=== PATIENT | male | born 1960 | race Caucasian/White ===

== ENCOUNTER → 2019-02-02 11:35 | Outpatient (CLI) | payer MEDICARE ==
[~2019-02-02 11:35] MED LIST: ATIVAN1 MG PO; COZAAR50 MG PO; HYDROCODON-ACE1 EA10 PO; LIPITOR20 MG PO; MOBIC7.5 MG PO; PROTONIX40 MG PO; REMERON30 MG PO; ZANTAC300 MG PO; ZOFRAN8 MG PO
[2019-02-02 11:38] LABS: HEMATOCRIT 28.9 % (42.0-54.0); HEMOGLOBIN 10.3 g/dL (13.5-17.5); MCH 32.2 pg (26.0-34.0); MCHC 35.6 g/dL (31.0-37.0); MCV 90.3 fL (80.0-100.0); MEAN PLATELET VOLUME 9.5 fL (7.4-10.4); PLATELET COUNT 146 10x3/uL (130-400); RDW 12.7 % (11.5-14.5)
[2019-02-02 11:42] LABS: WBC 1.4 10x3/uL (4.8-10.8)
[2019-02-02 12:17] LABS: BASOPHILS 1 % (0-2); EOSINOPHILS 1 % (0-7); LYMPHOCYTES 23 % (15-50); MONOCYTES 8 % (2-11); NEUTROPHILS 66 % (40-80); PLATELET ESTIMATE NORMAL
[2019-02-09 14:32] VITALS: BMI 24.5
== END | disposition home or self-care (01) ==
LOC: D.LABREF 11:35
PROVIDERS: ATTEND Legal Medicine
DX: C09.0 Malignant neoplasm of tonsillar fossa (principal)

== ENCOUNTER 2019-02-05 14:13 | Inpatient (IN) | payer MEDICARE ==
[~2019-02-05] VITALS: Ht 175.3 cm; Wt 75.3 kg
[2019-02-05] MEDS ORDERED: MOBIC7.5 MG PO (14:23)
[2019-02-05] MEDS ORDERED: ZANTAC300 MG PO (14:23)
[2019-02-05] MEDS ORDERED: PROTONIX40 MG PO (14:24)
[2019-02-05] MEDS ORDERED: REMERON30 MG PO (14:24)
[2019-02-05] MEDS ORDERED: LIPITOR20 MG PO (14:24)
[2019-02-05] MEDS ORDERED: HYDROCODON-ACE1 EA10 PO (14:25)
[2019-02-05] MEDS ORDERED: ZOFRAN8 MG PO (14:26)
[2019-02-05] MEDS ORDERED: ATIVAN1 MG PO (14:26)
[2019-02-05 14:57] LABS: BASOPHILS 0.8 % (0-2); EOSINOPHILS 1.6 % (0-7); HEMOGLOBIN 10.3 g/dL (13.5-17.5); IMMATURE GRANULOCYTES 0.8 % (0-5); LYMPHOCYTES 20.3 % (15-50); MCH 31.7 pg (26.0-34.0); MCHC 35.5 g/dL (31.0-37.0); MCV 89.2 fL (80.0-100.0); MEAN PLATELET VOLUME 9.2 fL (7.4-10.4); MONOCYTES 7.3 % (2-11); NEUTROPHILS 69.2 % (40-80); RBC 3.25 10x6/uL (4.20-6.10)
[2019-02-05 14:58] LABS: PLATELET COUNT 224 10x3/uL (130-400); WBC 1.2 10x3/uL (4.8-10.8)
[2019-02-05 15:11] LABS: ALBUMIN 2.7 g/dL (3.4-5.0); ANION GAP 17.6 mmol/L (8-16); BILIRUBIN - TOTAL 0.73 mg/dL (0.2-1.3); CALCIUM 9.1 mg/dL (8.5-10.1); CARBON DIOXIDE 25.5 mmol/L (21.0-32.0); CREATININE - SERUM 1.1 mg/dL (0.6-1.3); POTASSIUM - SERUM 3.1 mmol/L (3.5-5.1); PROTEIN - SERUM 7.4 g/dL (6.4-8.2)
[2019-02-05 16:40] VITALS: BP 166/90
[2019-02-05 18:06] VITALS: BMI 24.5
[2019-02-05 19:31] VITALS: BP 171/86
[2019-02-06] VITALS (7 sets, daily range): BP systolic 148–169; BP diastolic 82–103
[2019-02-06 02:07] LABS: APPEARANCE CLEAR (CLEAR); BILIRUBIN NEGATIVE (NEGATIVE); COLOR YELLOW (YELLOW); GLUCOSE NEGATIVE (NEGATIVE); KETONE LARGE mg/dL (NEGATIVE); NITRITE NEGATIVE (NEGATIVE); PROTEIN NEGATIVE (NEGATIVE); SPECIFIC GRAVITY 1.025 (1.005-1.020); UROBILINOGEN NORMAL (NORMAL)
[2019-02-06 07:02] LABS: HEMATOCRIT 27.1 % (42.0-54.0); HEMOGLOBIN 9.7 g/dL (13.5-17.5); MCH 31.8 pg (26.0-34.0); MCHC 35.8 g/dL (31.0-37.0); MCV 88.9 fL (80.0-100.0); MEAN PLATELET VOLUME 9.4 fL (7.4-10.4); PLATELET COUNT 208 10x3/uL (130-400); RBC 3.05 10x6/uL (4.20-6.10); RDW 13.2 % (11.5-14.5)
[2019-02-06 07:07] LABS: WBC 0.9 10x3/uL (4.8-10.8)
[2019-02-06 07:45] LABS: CALCIUM 8.6 mg/dL (8.5-10.1); CHLORIDE - SERUM 102 mmol/L (98-107); GLUCOSE 109 mg/dL (74-106); MAGNESIUM - SERUM 1.6 mg/dL (1.8-2.4); PHOSPHOROUS 2.7 mg/dL (2.5-4.9); POTASSIUM - SERUM 3.1 mmol/L (3.5-5.1); SODIUM 142 mmol/L (136-145)
[2019-02-06 07:53] LABS: CALC OSMOLALITY 282 mosm/kg (275-300); CREATININE - SERUM 0.7 mg/dL (0.6-1.3); UREA NITROGEN 11 mg/dL (7-18); eGFR NON AFRICAN AMERICAN > 90 mL/min (90-120)
[2019-02-06 08:30] LABS: EOSINOPHILS 8 % (0-7); LYMPHOCYTES 20 % (15-50); MONOCYTES 4 % (2-11); NEUTROPHILS 50 % (40-80); TOXIC GRANULATION 4+
[2019-02-06 08:31] LABS: PLATELET ESTIMATE DECREASED; SMUDGE CELLS 1+
[2019-02-06 08:32] LABS: ANISOCYTOSIS 1+; SPHEROCYTES OCC
[2019-02-07 04:59] VITALS: BP 158/86
[2019-02-07 06:35] LABS: CALC OSMOLALITY 279 mosm/kg (275-300); CALCIUM 8.3 mg/dL (8.5-10.1); CARBON DIOXIDE 31.5 mmol/L (21.0-32.0); CHLORIDE - SERUM 102 mmol/L (98-107); CREATININE - SERUM 0.8 mg/dL (0.6-1.3); GLUCOSE 128 mg/dL (74-106); SODIUM 140 mmol/L (136-145); UREA NITROGEN 9 mg/dL (7-18); eGFR NON AFRICAN AMERICAN > 90 mL/min (90-120)
[2019-02-07 06:36] LABS: HEMOGLOBIN 8.8 g/dL (13.5-17.5); MCH 31.2 pg (26.0-34.0); MCHC 35.2 g/dL (31.0-37.0); MCV 88.7 fL (80.0-100.0); MEAN PLATELET VOLUME 9.4 fL (7.4-10.4); PLATELET COUNT 199 10x3/uL (130-400); RBC 2.82 10x6/uL (4.20-6.10); RDW 12.8 % (11.5-14.5)
[2019-02-07 06:37] LABS: WBC 2.2 10x3/uL (4.8-10.8)
[2019-02-07 06:59] LABS: POTASSIUM - SERUM 2.5 mmol/L (3.5-5.1)
[2019-02-07 08:56] LABS: BASOPHILS 3 % (0-2); EOSINOPHILS 18 % (0-7); LYMPHOCYTES 7 % (15-50); MONOCYTES 3 % (2-11); NEUTROPHILS 49 % (40-80); PLATELET ESTIMATE NORMAL
[2019-02-07 09:13] VITALS: BP 153/88
[2019-02-07 13:56] VITALS: BP 148/86
[2019-02-07 14:54] VITALS: BMI 24.5
[2019-02-07 17:04] VITALS: BP 162/84
[2019-02-07 20:00] VITALS: BP 168/90
[2019-02-08] VITALS: BP 171/93
[2019-02-08 04:00] VITALS: BP 162/94
[2019-02-08 08:51] VITALS: BP 172/100
[2019-02-08 09:49] LABS: CALC OSMOLALITY 277 mosm/kg (275-300); CALCIUM 8.4 mg/dL (8.5-10.1); CARBON DIOXIDE 27.9 mmol/L (21.0-32.0); CHLORIDE - SERUM 102 mmol/L (98-107); CREATININE - SERUM 0.8 mg/dL (0.6-1.3); GLUCOSE 86 mg/dL (74-106); SODIUM 141 mmol/L (136-145); UREA NITROGEN 7 mg/dL (7-18); eGFR NON AFRICAN AMERICAN > 90 mL/min (90-120)
[2019-02-08 09:51] LABS: POTASSIUM - SERUM 2.9 mmol/L (3.5-5.1)
[2019-02-08 10:21] LABS: HEMATOCRIT 26.3 % (42.0-54.0); HEMOGLOBIN 9.4 g/dL (13.5-17.5); MCH 31.9 pg (26.0-34.0); MCHC 35.7 g/dL (31.0-37.0); MCV 89.2 fL (80.0-100.0); MEAN PLATELET VOLUME 9.2 fL (7.4-10.4); PLATELET COUNT 272 10x3/uL (130-400); RBC 2.95 10x6/uL (4.20-6.10); RDW 12.9 % (11.5-14.5); WBC 6.7 10x3/uL (4.8-10.8)
[2019-02-08 11:21] LABS: LYMPHOCYTES 8 % (15-50); MONOCYTES 12 % (2-11); NEUTROPHILS 53 % (40-80); PLATELET ESTIMATE NORMAL
[2019-02-08 13:21] VITALS: BP 166/93
[2019-02-08 17:52] VITALS: BP 149/94
[2019-02-08 20:00] VITALS: BP 153/91
[2019-02-09 04:56] VITALS: BP 159/98
[2019-02-09 07:23] LABS: HEMOGLOBIN 8.8 g/dL (13.5-17.5); MCH 31.5 pg (26.0-34.0); MCHC 35.2 g/dL (31.0-37.0); MCV 89.6 fL (80.0-100.0); MEAN PLATELET VOLUME 9.3 fL (7.4-10.4); PLATELET COUNT 295 10x3/uL (130-400); RBC 2.79 10x6/uL (4.20-6.10); RDW 13.3 % (11.5-14.5)
[2019-02-09 07:24] LABS: WBC 8.4 10x3/uL (4.8-10.8)
[2019-02-09 07:31] LABS: CALCIUM 8.4 mg/dL (8.5-10.1); CARBON DIOXIDE 29.9 mmol/L (21.0-32.0); CHLORIDE - SERUM 101 mmol/L (98-107); CREATININE - SERUM 0.9 mg/dL (0.6-1.3); POTASSIUM - SERUM 3.4 mmol/L (3.5-5.1); SODIUM 138 mmol/L (136-145); eGFR NON AFRICAN AMERICAN > 90 mL/min (90-120)
[2019-02-09 07:40] LABS: CALC OSMOLALITY 276 mosm/kg (275-300); GLUCOSE 133 mg/dL (74-106); UREA NITROGEN 9 mg/dL (7-18)
[2019-02-09 09:14] VITALS: BP 152/89
[2019-02-09 09:15] LABS: LYMPHOCYTES 21 % (15-50); MONOCYTES 14 % (2-11); NEUTROPHILS 40 % (40-80); PLATELET ESTIMATE NORMAL
[2019-02-09 12:41] VITALS: BP 168/92
[2019-02-09 14:32] VITALS: Ht 175.3 cm; Wt 75.3 kg
[2019-02-09 17:37] VITALS: BP 161/94
[2019-02-09 20:00] VITALS: BP 171/96
[2019-02-10 04:00] VITALS: BP 129/81
[2019-02-10 07:49] LABS: CALC OSMOLALITY 280 mosm/kg (275-300); CALCIUM 8.6 mg/dL (8.5-10.1); CARBON DIOXIDE 29.2 mmol/L (21.0-32.0); CHLORIDE - SERUM 103 mmol/L (98-107); CREATININE - SERUM 0.9 mg/dL (0.6-1.3); GLUCOSE 134 mg/dL (74-106); POTASSIUM - SERUM 3.3 mmol/L (3.5-5.1); SODIUM 139 mmol/L (136-145); eGFR NON AFRICAN AMERICAN > 90 mL/min (90-120)
[2019-02-10 07:52] LABS: UREA NITROGEN 15 mg/dL (7-18)
[2019-02-10 07:53] LABS: BASOPHILS 1.5 % (0-2); EOSINOPHILS 0.1 % (0-7); IMMATURE GRANULOCYTES 6.6 % (0-5); LYMPHOCYTES 11.5 % (15-50); MCH 31.3 pg (26.0-34.0); MCHC 34.6 g/dL (31.0-37.0); MCV 90.3 fL (80.0-100.0); MEAN PLATELET VOLUME 9.2 fL (7.4-10.4); MONOCYTES 26.2 % (2-11); NEUTROPHILS 54.1 % (40-80); PLATELET COUNT 315 10x3/uL (130-400); RBC 2.88 10x6/uL (4.20-6.10); RDW 13.7 % (11.5-14.5); WBC 6.8 10x3/uL (4.8-10.8)
[2019-02-10 09:25] VITALS: BP 144/95
[2019-02-10 13:43] VITALS: BP 178/97
[2019-02-10 17:29] VITALS: BP 170/102
[2019-02-10 18:19] LABS: HEMATOCRIT 26.6 % (42.0-54.0); HEMOGLOBIN 9.1 g/dL (13.5-17.5); MCH 31.3 pg (26.0-34.0); MCHC 34.2 g/dL (31.0-37.0); MCV 91.4 fL (80.0-100.0); MEAN PLATELET VOLUME 9.2 fL (7.4-10.4); PLATELET COUNT 309 10x3/uL (130-400); RBC 2.91 10x6/uL (4.20-6.10); RDW 13.9 % (11.5-14.5); WBC 6.1 10x3/uL (4.8-10.8)
--- NOTE | 2019-02-10 19:16 | MORECARE ---
CASE MANAGEMENT DISCHARGE SUMMARY PATIENT: ZHANNA WHITE UNIT: [id number] ADM DATE: 02/07/19 AGE: 58 : 56 SEX: M ROOM/BED: D.2235 AUTHOR: ASIA GROSSMAN PHYSICIAN: REFERRING PHYSICIAN: REGINO REYES MD DATE OF SERVICE: 02/10/19 Discharge Plan Patient Name: ZHANNA WHITE Facility: [facility]:[place] : 1960 Planned Disposition: Home Anticipated Discharge Date: 02/13/19 Discharge Date: Expected LOS: 6 Initial Reviewer: [id number] Initial Review Date: 02/10/2019 Generated: 02/10/19 8:16 pm Comments DCP- Discharge Planning Updated by [id number]: Anyi Carroll on 02/10/19 6:[address] Patient Name: ZHANNA WHITE Admission Status: ER Accout number: [id number] Admission Date: 02-07-2019 : 1960 Admission Diagnosis: Attending: REGINO REYES Current LOS: 3 Anticipated DC Date: 02-13-2019 Planned Disposition: Home Primary Insurance: MEDICARE A & B Discharge Planning Comments: CM MET WITH PATIENT AND (SHANDA) REGARDING D/C NEEDS AND PLANS. PATIENT STATED IS WILL DRIVE HIM HOME WHEN DISCHARGED. THERE ARE NO STEPS OR STAIRS AT PATIENTS HOME PER . PATIENT STATED HE IS INDEPENDENT WITH HIS CARE EXCEPT HIS HELPS WITH HIS MEDICATIONS. PATIENT STATED HE HAS A WALKER AT HOME. PATIENT AND STATED THEY DID NOT WANT HOME HEALTH UNLESS NECESSARY PER THE DOCTOR. THE HOME HEALTH CHOICE FORM WAS GIVEN AND FORM SIGNED. CM WILL CONTINUE TO FOLLOW PATIENT WITH D/C NEEDS AND PLANS. [facility] [place] () [phone] Welder/Fitter: Anyi Carroll DCPIA - Discharge Planning Initial Assessment Updated by [email or web address]: Anyi Carroll on 02/10/19 7:11 pm * Is the patient Alert and Oriented? Yes * How many steps to enter\exit or inside your home? * PCP DR. NAIDU ([place]) * Pharmacy [facility] ([place]) * Preadmission Environment Home with Family * ADLs Partial Dependent * Partial ADLs (Assistance needed) Medication Management * Equipment Walker * List name and contact numbers for known caregivers / representatives who currently or will assist patient after discharge: SHANDA WHITE () * Verbal permission to speak to the caregivers and representatives has been obtained from the patient. Yes * Community resources currently utilized None * Additional services required to return to the preadmission environment? Yes * Can the patient safely return to the preadmission environment? Yes * Has this patient been hospitalized within the prior 30 days at any hospital? No Coverage Notice Reviewer: [id number] Rosa Carroll Notice Issued Date-Time: 02/10/2019 19:05 Notice Type: Patient Choice Letter Notice Delivered To: Family Member Relationship to Patient: Spouse Bread Oven Operator Name: SHANDA WHITE Delivery Method: HAND - Hand Delivered Leslie Days: Prior Verbal Notification: Recipient Understood Notice: Yes Recipient Signature: Yes Med Rec Note Co-signed by Attending: Coverage Notice Comment: REFUSAL OF HOME HEALTH Patient Name: ZHANNA WHITE Page 90883 at 1916 All edits/amendments must be made on the electronic document DICTATION DATE: 02/10/191915 SMALL ANIMAL VETERINARIAN: JOSSY 02/10/191915 RPT#: [id number] DC DATE: STATUS: ADM IN [facility] [address] [place] [address] END OF REPORT
[2019-02-10 20:00] VITALS: BP 172/96
[2019-02-10 20:50] LABS: BASOPHILS 1 % (0-2); LYMPHOCYTES 15 % (15-50); MONOCYTES 27 % (2-11); NEUTROPHILS 55 % (40-80); PLATELET ESTIMATE NORMAL; TEAR DROP CELLS OCC
[2019-02-11] VITALS: BP 147/97
[2019-02-11 04:00] VITALS: BP 148/83
[2019-02-11 11:01] VITALS: BP 125/93
[2019-02-11 14:08] VITALS: BP 148/64
[2019-02-11 14:35] LABS: ALBUMIN 2.2 g/dL (3.4-5.0); ALKALINE PHOSPHATASE 63 U/L (46-116); ALT (SGPT) 13 U/L (10-68); BILIRUBIN - TOTAL 0.29 mg/dL (0.2-1.3); CALC OSMOLALITY 283 mosm/kg (275-300); CALCIUM 8.5 mg/dL (8.5-10.1); CARBON DIOXIDE 31.1 mmol/L (21.0-32.0); CHLORIDE - SERUM 104 mmol/L (98-107); CREATININE - SERUM 0.8 mg/dL (0.6-1.3); GLUCOSE 121 mg/dL (74-106); POTASSIUM - SERUM 3.7 mmol/L (3.5-5.1); SODIUM 142 mmol/L (136-145); UREA NITROGEN 12 mg/dL (7-18); eGFR NON AFRICAN AMERICAN > 90 mL/min (90-120)
[2019-02-11 17:26] VITALS: BP 136/54
[2019-02-11 20:00] VITALS: BP 145/85
[2019-02-12] VITALS: BP 162/94
[2019-02-12 04:00] VITALS: BP 166/89
[2019-02-12 05:52] LABS: EOSINOPHILS 0.2 % (0-7); HEMATOCRIT 25.7 % (42.0-54.0); HEMOGLOBIN 8.7 g/dL (13.5-17.5); IMMATURE GRANULOCYTES 21.3 % (0-5); LYMPHOCYTES 6.4 % (15-50); MCH 31.1 pg (26.0-34.0); MCHC 33.9 g/dL (31.0-37.0); MCV 91.8 fL (80.0-100.0); MEAN PLATELET VOLUME 9.1 fL (7.4-10.4); MONOCYTES 22.6 % (2-11); NEUTROPHILS 48.5 % (40-80); PLATELET COUNT 300 10x3/uL (130-400); RDW 14.1 % (11.5-14.5); WBC 6.3 10x3/uL (4.8-10.8)
[2019-02-12 06:19] LABS: CALC OSMOLALITY 281 mosm/kg (275-300); CALCIUM 8.4 mg/dL (8.5-10.1); CARBON DIOXIDE 27.1 mmol/L (21.0-32.0); CHLORIDE - SERUM 105 mmol/L (98-107); CREATININE - SERUM 0.8 mg/dL (0.6-1.3); GLUCOSE 91 mg/dL (74-106); MAGNESIUM - SERUM 1.6 mg/dL (1.8-2.4); PHOSPHOROUS 4.2 mg/dL (2.5-4.9); POTASSIUM - SERUM 3.5 mmol/L (3.5-5.1); SODIUM 142 mmol/L (136-145); UREA NITROGEN 9 mg/dL (7-18); eGFR NON AFRICAN AMERICAN > 90 mL/min (90-120)
[2019-02-12 08:45] VITALS: BP 172/87
[2019-02-12 12:58] VITALS: BP 155/87
[2019-02-12 17:42] VITALS: BP 157/88
[2019-02-12 19:53] VITALS: BP 168/87
[2019-02-13] VITALS: BP 159/90
[2019-02-13 04:00] VITALS: BP 153/87
[2019-02-13 06:42] LABS: HEMATOCRIT 26.1 % (42.0-54.0); HEMOGLOBIN 8.9 g/dL (13.5-17.5); MCH 31.2 pg (26.0-34.0); MCHC 34.1 g/dL (31.0-37.0); MCV 91.6 fL (80.0-100.0); MEAN PLATELET VOLUME 9.3 fL (7.4-10.4); PLATELET COUNT 299 10x3/uL (130-400); RBC 2.85 10x6/uL (4.20-6.10); RDW 14.2 % (11.5-14.5); WBC 4.9 10x3/uL (4.8-10.8)
[2019-02-13 07:51] LABS: EOSINOPHILS 1 % (0-7); LYMPHOCYTES 8 % (15-50); MONOCYTES 14 % (2-11); NEUTROPHILS 64 % (40-80)
[2019-02-13 07:52] LABS: ANISOCYTOSIS 1+; PLATELET ESTIMATE NORMAL; POIKILOCYTOSIS 1+
[2019-02-13 07:59] LABS: CALC OSMOLALITY 278 mosm/kg (275-300); CALCIUM 8.2 mg/dL (8.5-10.1); CARBON DIOXIDE 25.5 mmol/L (21.0-32.0); CHLORIDE - SERUM 102 mmol/L (98-107); CREATININE - SERUM 0.9 mg/dL (0.6-1.3); GLUCOSE 128 mg/dL (74-106); MAGNESIUM - SERUM 1.8 mg/dL (1.8-2.4); PHOSPHOROUS 3.2 mg/dL (2.5-4.9); POTASSIUM - SERUM 3.3 mmol/L (3.5-5.1); SODIUM 139 mmol/L (136-145); UREA NITROGEN 10 mg/dL (7-18); eGFR NON AFRICAN AMERICAN > 90 mL/min (90-120)
[2019-02-13 08:13] VITALS: BP 157/88
[2019-02-13] MEDS ORDERED: COZAAR50 MG PO (08:23)
[2019-02-13 13:44] VITALS: BP 145/85
[2019-02-13 17:47] VITALS: BP 140/82
--- NOTE | 2019-02-13 19:38 | MORECARE ---
CASE MANAGEMENT DISCHARGE SUMMARY PATIENT: ZHANNA WHITE UNIT: [id number] ADM DATE: 02/07/19 AGE: 58 : 56 SEX: M ROOM/BED: D.2235 AUTHOR: ASIA GROSSMAN PHYSICIAN: REFERRING PHYSICIAN: REGINO REYES MD DATE OF SERVICE: 02/13/19 Discharge Plan Patient Name: ZHANNA WHITE Facility: [facility]:[place] : 1960 Planned Disposition: Home Anticipated Discharge Date: 02/13/19 Discharge Date: Expected LOS: 6 Initial Reviewer: [id number] Initial Review Date: 02/10/2019 Generated: 02/13/19 8:38 pm Comments DCP- Discharge Planning Updated by [id number]: Kristina Reeves on 02/13/19 6:[address] LATE ENTRY 0900 PATIENT FOR DISCHARGE TODAY. TC TO LIT POTTS THE PATIENT HAS NOT REACHED GOAL ON THE TUBE FEEDING. HE HAS BEEN ON CONTINOUS TUBE FEEDING. THE PLAN IS TO SEND HIM HOME ON BOLUS FEEDINGS. NO TEACHING FOR BOLUS FEEDING WITH PATIENT AND CAREGIVER. CONCERN FOR ASPIRATION HE WAS AT 40 /CC AN HOUR ON CONTINOUS. NO SPECIFIC TUBE FEEDING ORDERS. DIETITIAN NOT ON SITE ON THURSDAY. DISCUSSED MANUAL WRITER BACK FROM LUMBER PULLER. PLAN FOR DISCHARGE ON THURSDAY FOR SAFER COORDINATION OF CARE. DCP- Discharge Planning Updated by [email or web address]: Anyi Carroll on 02/10/19 6:[address] Patient Name: ZHANNA WHITE Admission Status: ER Accout number: [id number] Admission Date: 02-07-2019 : 1960 Admission Diagnosis: Attending: REGINO REYES Current LOS: 3 Anticipated DC Date: 02-13-2019 Planned Disposition: Home Primary Insurance: MEDICARE A & B Discharge Planning Comments: CM MET WITH PATIENT AND (SHANDA) REGARDING D/C NEEDS AND PLANS. PATIENT STATED IS WILL DRIVE HIM HOME WHEN DISCHARGED. THERE ARE NO STEPS OR STAIRS AT PATIENTS HOME PER . PATIENT STATED HE IS INDEPENDENT WITH HIS CARE EXCEPT HIS HELPS WITH HIS MEDICATIONS. PATIENT STATED HE HAS A WALKER AT HOME. PATIENT AND STATED THEY DID NOT WANT HOME HEALTH UNLESS NECESSARY PER THE DOCTOR. THE HOME HEALTH CHOICE FORM WAS GIVEN AND FORM SIGNED. CM WILL CONTINUE TO FOLLOW PATIENT WITH D/C NEEDS AND PLANS. [facility] [place] () [phone] Inbound Telemarketer: Anyi Carroll ORPIA - Discharge Planning Initial Assessment Updated by [email or web address]: Anyi Carroll on 02/10/19 7:11 pm * Is the patient Alert and Oriented? Yes * How many steps to enter\exit or inside your home? * PCP DR. NAIDU ([place]) * Pharmacy [facility] ([place]) * Preadmission Environment Home with Family * ADLs Partial Dependent * Partial ADLs (Assistance needed) Medication Management * Equipment Walker * List name and contact numbers for known caregivers / representatives who currently or will assist patient after discharge: SHANDA WHITE () * Verbal permission to speak to the caregivers and representatives has been obtained from the patient. Yes * Community resources currently utilized None * Additional services required to return to the preadmission environment? Yes * Can the patient safely return to the preadmission environment? Yes * Has this patient been hospitalized within the prior 30 days at any hospital? No Coverage Notice Reviewer: [id number] - Anyi Carroll Notice Issued Date-Time: 02/10/2019 19:05 Notice Type: Patient Choice Letter Notice Delivered To: Family Member Relationship to Patient: Spouse Commercial Solar Sales Consultant Name: SHANDA WHITE Delivery Method: HAND - Hand Delivered Leslie Days: Prior Verbal Notification: Recipient Understood Notice: Yes Recipient Signature: Yes Med Rec Note Co-signed by Attending: Coverage Notice Comment: REFUSAL OF HOME HEALTH Last DP export: 02/10/19 6:16 p Patient Name: ZHANNA WHITE Page 03194 at 1938 All edits/amendments must be made on the electronic document DICTATION DATE: 02/13/191936 PAPER SHEETER: JOSSY 02/13/191936 RPT#: [id number] DC DATE: STATUS: ADM IN [facility] [address] [place] [address] END OF REPORT
[2019-02-13 20:00] VITALS: BP 154/92
[2019-02-14] VITALS: BP 148/81
[2019-02-14 03:00] VITALS: BP 160/91
[2019-02-14 05:51] LABS: MAGNESIUM - SERUM 1.7 mg/dL (1.8-2.4); PHOSPHOROUS 3.5 mg/dL (2.5-4.9)
[2019-02-14 08:15] VITALS: BP 138/87
--- NOTE | 2019-02-14 10:08 | MORECARE ---
CASE MANAGEMENT DISCHARGE SUMMARY PATIENT: ZHANNA WHITE UNIT: [id number] ADM DATE: 02/07/19 AGE: 58 : 56 SEX: M ROOM/BED: D.2235 AUTHOR: ASIA GROSSMAN PHYSICIAN: REFERRING PHYSICIAN: REGINO REYES MD DATE OF SERVICE: 02/14/19 Discharge Plan Patient Name: ZHANNA WHITE Facility: [facility]:[place] : 1960 Planned Disposition: Home Anticipated Discharge Date: 02/13/19 Discharge Date: Expected LOS: 6 Initial Reviewer: [id number] Initial Review Date: 02/10/2019 Generated: 02/14/19 11:08 am Comments DCP- Discharge Planning Updated by [email or web address]: Kristina Reeves on 02/13/19 6:[address] LATE ENTRY 0900 PATIENT FOR DISCHARGE TODAY. TC TO LIT POTTS THE PATIENT HAS NOT REACHED GOAL ON THE TUBE FEEDING. HE HAS BEEN ON CONTINOUS TUBE FEEDING. THE PLAN IS TO SEND HIM HOME ON BOLUS FEEDINGS. NO TEACHING FOR BOLUS FEEDING WITH PATIENT AND CAREGIVER. CONCERN FOR ASPIRATION HE WAS AT 40 /CC AN HOUR ON CONTINOUS. NO SPECIFIC TUBE FEEDING ORDERS. DIETITIAN NOT ON SITE ON THURSDAY. DISCUSSED MELTER CLERK BACK FROM RIGHT OF WAY CUTTER. PLAN FOR DISCHARGE ON THURSDAY FOR SAFER COORDINATION OF CARE. DCP- Discharge Planning Updated by [email or web address]: Anyi Carroll on 02/10/19 6:[address] Patient Name: ZHANNA WHITE Admission Status: ER Accout number: [id number] Admission Date: 02-07-2019 : 1960 Admission Diagnosis: Attending: REGINO REYES Current LOS: 3 Anticipated DC Date: 02-13-2019 Planned Disposition: Home Primary Insurance: MEDICARE A & B Discharge Planning Comments: CM MET WITH PATIENT AND (SHANDA) REGARDING D/C NEEDS AND PLANS. PATIENT STATED IS WILL DRIVE HIM HOME WHEN DISCHARGED. THERE ARE NO STEPS OR STAIRS AT PATIENTS HOME PER . PATIENT STATED HE IS INDEPENDENT WITH HIS CARE EXCEPT HIS HELPS WITH HIS MEDICATIONS. PATIENT STATED HE HAS A WALKER AT HOME. PATIENT AND STATED THEY DID NOT WANT HOME HEALTH UNLESS NECESSARY PER THE DOCTOR. THE HOME HEALTH CHOICE FORM WAS GIVEN AND FORM SIGNED. CM WILL CONTINUE TO FOLLOW PATIENT WITH D/C NEEDS AND PLANS. [facility] [place] () [phone] Chemical Sales Representative: Anyi Carroll CTPIA - Discharge Planning Initial Assessment Updated by [email or web address]: Anyi Carroll on 02/10/19 7:11 pm * Is the patient Alert and Oriented? Yes * How many steps to enter\exit or inside your home? * PCP DR. NAIDU ([place]) * Pharmacy [facility] ([place]) * Preadmission Environment Home with Family * ADLs Partial Dependent * Partial ADLs (Assistance needed) Medication Management * Equipment Walker * List name and contact numbers for known caregivers / representatives who currently or will assist patient after discharge: SHANDA WHITE () * Verbal permission to speak to the caregivers and representatives has been obtained from the patient. Yes * Community resources currently utilized None * Additional services required to return to the preadmission environment? Yes * Can the patient safely return to the preadmission environment? Yes * Has this patient been hospitalized within the prior 30 days at any hospital? No External Providers External Provider: OTHER-OTHER Next Contact Date: Service Request Date: Service Type: Resolution: Reviewer: Comments: Coverage Notice Reviewer: [id number] - Anyi Carroll Notice Issued Date-Time: 02/10/2019 19:05 Notice Type: Patient Choice Letter Notice Delivered To: Family Member Relationship to Patient: Spouse Regional Maintenance Manager Name: SHANDA WHITE Delivery Method: HAND - Hand Delivered Leslie Days: Prior Verbal Notification: Recipient Understood Notice: Yes Recipient Signature: Yes Med Rec Note Co-signed by Attending: Coverage Notice Comment: REFUSAL OF HOME HEALTH Last DP export: 02/13/19 6:38 p Patient Name: ZHANNA WHITE Page 09425 at 1008 All edits/amendments must be made on the electronic document DICTATION DATE: 02/14/19 1007 SENIOR CASE MANAGER: JOSSY 02/14/19 1007 RPT#: [id number] DC DATE: STATUS: ADM IN [facility] [address] [place] [address] END OF REPORT
--- NOTE | 2019-02-14 11:02 | MORECARE ---
CASE MANAGEMENT DISCHARGE SUMMARY PATIENT: ZHANNA WHITE UNIT: [id number] ADM DATE: 02/07/19 AGE: 58 : 56 SEX: M ROOM/BED: D.2235 AUTHOR: CHAUNCEY,DOC PHYSICIAN: REFERRING PHYSICIAN: REGINO REYES MD DATE OF SERVICE: 02/14/19 Discharge Plan Patient Name: ZHANNA WHITE Facility: [facility]:[place] : 1960 Planned Disposition: Home Anticipated Discharge Date: 02/13/19 Discharge Date: Expected LOS: 6 Initial Reviewer: [id number] Initial Review Date: 02/10/2019 Generated: 02/14/19 12:02 pm Comments DCP- Discharge Planning Updated by [id number]: Vannesa Ellington on 02/14/19 10:[address] Received order for discharge. Dmitriy with [facility] has given patient/ a copy of his note on amount and times of bolus feeds. Dmitriy has spoken to his primary nurse, Isabella for teaching. 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 I met with patient and his and she states feels comfortable with the feeds. [facility] for [facility] signed for tube feeding and order and clinical faxed. I spoke with Divya at [facility]. They will meet patient at 1500 at their house per their request. CM will continue to follow and assist with discharge planning/needs. [facility] infusion: Fax - [phone] DCP- Discharge Planning Updated by [id number]: Kristina Reeves on 02/13/19 6:[address] LATE ENTRY 0900 PATIENT FOR DISCHARGE TODAY. TC TO LIT POTTS THE PATIENT HAS NOT REACHED GOAL ON THE TUBE FEEDING. HE HAS BEEN ON CONTINOUS TUBE FEEDING. THE PLAN IS TO SEND HIM HOME ON BOLUS FEEDINGS. NO TEACHING FOR BOLUS FEEDING WITH PATIENT AND CAREGIVER. CONCERN FOR ASPIRATION HE WAS AT 40 /CC AN HOUR ON CONTINOUS. NO SPECIFIC TUBE FEEDING ORDERS. DIETITIAN NOT ON SITE ON THURSDAY. DISCUSSED EXCELSIOR PICKER BACK FROM WEATHER ANALYST. PLAN FOR DISCHARGE ON THURSDAY FOR SAFER COORDINATION OF CARE. DCP- Discharge Planning Updated by [email or web address]: Anyi Carroll on 02/10/19 6:[address] Patient Name: ZHANNA WHITE Admission Status: ER Accout number: [id number] Admission Date: 02-07-2019 : 1960 Admission Diagnosis: Attending: REGINO REYES Current LOS: 3 Anticipated DC Date: 02-13-2019 Planned Disposition: Home Primary Insurance: MEDICARE A & B Discharge Planning Comments: CM MET WITH PATIENT AND (SHANDA) REGARDING D/C NEEDS AND PLANS. PATIENT STATED IS WILL DRIVE HIM HOME WHEN DISCHARGED. THERE ARE NO STEPS OR STAIRS AT PATIENTS HOME PER . PATIENT STATED HE IS INDEPENDENT WITH HIS CARE EXCEPT HIS HELPS WITH HIS MEDICATIONS. PATIENT STATED HE HAS A WALKER AT HOME. PATIENT AND STATED THEY DID NOT WANT HOME HEALTH UNLESS NECESSARY PER THE DOCTOR. THE HOME HEALTH CHOICE FORM WAS GIVEN AND FORM SIGNED. CM WILL CONTINUE TO FOLLOW PATIENT WITH D/C NEEDS AND PLANS. [facility] [place] () [phone] Digital Media Specialist: Anyi Carroll [facility] Initial Assessment Updated by [email or web address]: Anyi Carroll on 02/10/19 7:11 pm * Is the patient Alert and Oriented? Yes * How many steps to enter\exit or inside your home? * PCP DR. NAIDU ([place]) * Pharmacy [facility] ([place]) * Preadmission Environment Home with Family * ADLs Partial Dependent * Partial ADLs (Assistance needed) Medication Management * Equipment Walker * List name and contact numbers for known caregivers / representatives who currently or will assist patient after discharge: SHANDA WHITE () * Verbal permission to speak to the caregivers and representatives has been obtained from the patient. Yes * Community resources currently utilized None * Additional services required to return to the preadmission environment? Yes * Can the patient safely return to the preadmission environment? Yes * Has this patient been hospitalized within the prior 30 days at any hospital? No Coverage Notice Reviewer: [email or web address] Rosa Carroll Notice Issued Date-Time: 02/10/2019 19:05 Notice Type: Patient Choice Letter Notice Delivered To: Family Member Relationship to Patient: Spouse Embosser Operator Name: SHANDA WHITE Delivery Method: HAND - Hand Delivered Leslie Days: Prior Verbal Notification: Recipient Understood Notice: Yes Recipient Signature: Yes Med Rec Note Co-signed by Attending: Coverage Notice Comment: REFUSAL OF HOME HEALTH Reviewer: [id number] Ellington Notice Issued Date-Time: 02/14/2019 10:57 Notice Type: IM Discharge Notice Notice Delivered To: Patient Relationship to Patient: Self Embosser Operator Name: Delivery Method: HAND - Hand Delivered Leslie Days: Prior Verbal Notification: Recipient Understood Notice: Yes Recipient Signature: Yes Med Rec Note Co-signed by Attending: Coverage Notice Comment: IMM explained, signed by per his request, given , copy placed in MR Reviewer: [id number] Rosa Ellington Notice Issued Date-Time: 02/14/2019 11:01 Notice Type: Patient Choice Letter Notice Delivered To: Patient Relationship to Patient: Embosser Operator Name: Delivery Method: HAND - Hand Delivered Leslie Days: Prior Verbal Notification: Recipient Understood Notice: Yes Recipient Signature: Yes Med Rec Note Co-signed by Attending: Coverage Notice Comment: [facility] for [facility] for Tube feeding supplies Last DP export: 02/14/19 9:08 a Patient Name: ZHANNA WHITE Page 11164 at 1102 All edits/amendments must be made on the electronic document DICTATION DATE: 02/14/19 110 CAREER TECHNICAL SUPERVISOR: JOSSY 02/14/19 1102 RPT#: [id number] DC DATE: STATUS: ADM IN [facility] [address] [place] [address] END OF REPORT
--- NOTE | 2019-02-18 14:08 | MORECARE ---
CASE MANAGEMENT DISCHARGE SUMMARY PATIENT: ZHANNA WHITE UNIT: [id number] ADM DATE: 02/07/19 AGE: 58 : 56 SEX: M ROOM/BED: D.2235 AUTHOR: ASIA GROSSMAN PHYSICIAN: REFERRING PHYSICIAN: REGINO REYES MD DATE OF SERVICE: 02/18/19 Discharge Plan Patient Name: ZHANNA WHITE Facility: [facility]:[place] : 1960 Planned Disposition: Home Anticipated Discharge Date: 02/13/19 Discharge Date: 02/14/2019 Expected LOS: 6 Initial Reviewer: [id number] Initial Review Date: 02/10/2019 Generated: 02/18/19 3:07 pm Comments DCP- Discharge Planning Updated by [email or web address]: Vannesa Ellington on 02/14/19 10:[address] Received order for discharge. Dmitriy with dietary has given patient/ a copy of his note on amount and times of bolus feeds. Dmitriy has spoken to his primary nurse, Isabella for teaching. 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 I met with patient and his and she states feels comfortable with the feeds. [facility] for [facility] signed for tube feeding and order and clinical faxed. I spoke with Divya at [facility]. They will meet patient at 1500 at their house per their request. CM will continue to follow and assist with discharge planning/needs. [facility] infusion: Fax - [phone] DCP- Discharge Planning Updated by [id number]: Kristina Reeves on 02/13/19 6:[address] LATE ENTRY 0900 PATIENT FOR DISCHARGE TODAY. TC TO LIT POTTS THE PATIENT HAS NOT REACHED GOAL ON THE TUBE FEEDING. HE HAS BEEN ON CONTINOUS TUBE FEEDING. THE PLAN IS TO SEND HIM HOME ON BOLUS FEEDINGS. NO TEACHING FOR BOLUS FEEDING WITH PATIENT AND CAREGIVER. CONCERN FOR ASPIRATION HE WAS AT 40 /CC AN HOUR ON CONTINOUS. NO SPECIFIC TUBE FEEDING ORDERS. DIETITIAN NOT ON SITE ON THURSDAY. DISCUSSED INDUSTRIAL MAINTENANCE REPAIRER HELPER BACK FROM BLOOD BANK CREDIT CLERK. PLAN FOR DISCHARGE ON THURSDAY FOR SAFER COORDINATION OF CARE. DCP- Discharge Planning Updated by [id number]: Anyi Carroll on 02/10/19 6:[address] Patient Name: ZHANNA WHITE Admission Status: ER Accout number: [id number] Admission Date: 02-07-2019 : 1960 Admission Diagnosis: Attending: REGINO REYES Current LOS: 3 Anticipated DC Date: 02-13-2019 Planned Disposition: Home Primary Insurance: MEDICARE A & B Discharge Planning Comments: CM MET WITH PATIENT AND (SHANDA) REGARDING D/C NEEDS AND PLANS. PATIENT STATED IS WILL DRIVE HIM HOME WHEN DISCHARGED. THERE ARE NO STEPS OR STAIRS AT PATIENTS HOME PER . PATIENT STATED HE IS INDEPENDENT WITH HIS CARE EXCEPT HIS HELPS WITH HIS MEDICATIONS. PATIENT STATED HE HAS A WALKER AT HOME. PATIENT AND STATED THEY DID NOT WANT HOME HEALTH UNLESS NECESSARY PER THE DOCTOR. THE HOME HEALTH CHOICE FORM WAS GIVEN AND FORM SIGNED. CM WILL CONTINUE TO FOLLOW PATIENT WITH D/C NEEDS AND PLANS. [facility] [place] () [phone] Client Relation Specialist: Anyi Carroll [facility] - Discharge Planning Initial Assessment Updated by [id number]: Anyi Carroll on 02/10/19 7:11 pm * Is the patient Alert and Oriented? Yes * How many steps to enter\exit or inside your home? * PCP DR. NAIDU ([place]) * Pharmacy [facility] ([place]) * Preadmission Environment Home with Family * ADLs Partial Dependent * Partial ADLs (Assistance needed) Medication Management * Equipment Walker * List name and contact numbers for known caregivers / representatives who currently or will assist patient after discharge: SHANDA WHITE () * Verbal permission to speak to the caregivers and representatives has been obtained from the patient. Yes * Community resources currently utilized None * Additional services required to return to the preadmission environment? Yes * Can the patient safely return to the preadmission environment? Yes * Has this patient been hospitalized within the prior 30 days at any hospital? No Coverage Notice Reviewer: [email or web address] Rosa Carroll Notice Issued Date-Time: 02/10/2019 19:05 Notice Type: Patient Choice Letter Notice Delivered To: Family Member Relationship to Patient: Spouse Deputy County Attorney Name: SHANDA WHITE Delivery Method: HAND - Hand Delivered Leslie Days: Prior Verbal Notification: Recipient Understood Notice: Yes Recipient Signature: Yes Med Rec Note Co-signed by Attending: Coverage Notice Comment: REFUSAL OF HOME HEALTH Reviewer: [id number] Ellington Notice Issued Date-Time: 02/14/2019 10:57 Notice Type: IM Discharge Notice Notice Delivered To: Patient Relationship to Patient: Self Deputy County Attorney Name: Delivery Method: HAND - Hand Delivered Leslie Days: Prior Verbal Notification: Recipient Understood Notice: Yes Recipient Signature: Yes Med Rec Note Co-signed by Attending: Coverage Notice Comment: IMM explained, signed by per his request, given , copy placed in MR Reviewer: [id number] Rosa Ellington Notice Issued Date-Time: 02/14/2019 11:01 Notice Type: Patient Choice Letter Notice Delivered To: Patient Relationship to Patient: Deputy County Attorney Name: Delivery Method: HAND - Hand Delivered Leslie Days: Prior Verbal Notification: Recipient Understood Notice: Yes Recipient Signature: Yes Med Rec Note Co-signed by Attending: Coverage Notice Comment: [facility] for [facility] for Tube feeding supplies Last DP export: 02/14/19 10:02 a Patient Name: ZHANNA WHITE Page 18003 at 1408 All edits/amendments must be made on the electronic document DICTATION DATE: 02/18/191406 PROJECT ENGINEERING DIRECTOR: JOSSY 02/18/191406 RPT#: [id number] DC DATE:02/14/19 STATUS: DIS IN [place] [address] [place] [address] END OF REPORT
--- NOTE | 2019-03-03 13:36 | OP ---
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 3. Odynophagia. POSTOPERATIVE DIAGNOSES: 1. Tonsillar cancer 2. 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 3. Odynophagia. PROCEDURES: 1. Esophagogastroduodenoscopy with antral biopsies. 2. Percutaneous endoscopic gastrostomy tube placement, 20-[place]. SURGEON: Yohan Rojas MD HITCH TECHNICIAN: None. BLOOD LOSS: Minimal. ANESTHESIA: Local with oral topical anesthesia and IV sedation. COMPLICATIONS: None. The risks, possible complications, and alternatives to the procedure were explained to the patient. He elects to proceed. Discussion specifically included, but was not limited to, bleeding requiring emergency reoperation, infection, endoscopic perforation. OPERATIVE COURSE: The patient was conveyed to the GI lab electively on 02/11/2019. IV sedation was induced by the anesthesia staff. A topical anesthetic spray was sprayed into the patient's oropharynx. A gastroscope was inserted into the mouth. It was advanced easily into the hypopharynx. The esophagus was easily intubated as were the stomach and duodenum. Upon withdrawal, retroflexed and angulus views were obtained. Antral biopsies were obtained. I then cleansed the anterior abdominal wall skin. I was able to transilluminate the abdominal wall. A local anesthetic was used to infiltrate the skin and subcutaneous tissues. A transverse incision was accomplished. Through the transverse incision, I advanced an Angiocath. I punctured the stomach on the first try. I advanced a wire. This was grasped with an endoscopic snare. The wire was then brought out through the mouth along with the gastroscope. The wire was attached to a pull-type gastrostomy tube. This was then pulled into place. I then re-endoscoped the patient's esophagus and stomach. The gastrostomy flange could be seen easily. The gastroscope was then removed. The outer flange and infusion port were attached. A sterile dressing was applied. The patient was then conveyed back to his room. OPERATIVE REPORT [id number] ZHANNA WHITE TRANSINT:[id number] Voice Confirmation ID: [id number] DOCUMENT ID: [id number] YOHAN ROJAS MD at 1336 CC: REGINO REYES MD [id number] DICTATION DATE: 03/03/19 1229 [place] SET UP OPERATOR VERTICAL: 03/03/19 1302 DIS IN 02/14/19 [place] [id number] [place] [id number]
== END 2019-02-14 11:36 | disposition home or self-care (01) | DRG 808 ==
LOC: D.ER 14:13 → D.MS 16:44 → D.EDHOLD 16:44 → OBSVTIME 16:45 → D.MS 16:50 → D.SDCHOLD 02-07 15:02 → D.MS 02-07 15:04
PROVIDERS: Emergency Medicine; Family Medicine; Surgery; ADMIT Legal Medicine; ATTEND Legal Medicine
DX: D70.1 Agranulocytosis secondary to cancer chemotherapy (principal); A41.9 Sepsis, unspecified organism; R53.1 Weakness; T45.1X5A Adverse effect of antineoplastic and immunosuppressive drugs, initial encounter; D64.9 Anemia, unspecified; C09.9 Malignant neoplasm of tonsil, unspecified; E87.6 Hypokalemia